=== PATIENT | male | born 1985 | race Hispanic/Latino ===

== ENCOUNTER 2023-01-15 16:46 | Inpatient (IN) | payer SELFPAY ==
[~2023-01-15] VITALS: Ht 170.2 cm; Wt 70.3 kg
[2023-01-15] MEDS ORDERED: ACETAMINOPHEN 325 MG TAB PO ONE (17:30)
[2023-01-15] MEDS ORDERED: SODIUM CHLORIDE 0.9% 1000ML 1,000 ML IV ONE ×2 (17:30→18:15)
[2023-01-15 17:35] LABS: BASOPHILS % 0.3 % (0.0-1.0); EOSINOPHILS # (AUTO) 0.1 (0.0-0.4); EOSINOPHILS % 0.5 % (0.0-6.0); HEMATOCRIT 44.6 % (38.2-49.6); HEMOGLOBIN 14.6 g/dL (14.0-18.0); LYMPHOCYTES # (AUTO) 0.6 (1.0-3.2); LYMPHOCYTES % 4.1 % (18.0-39.1); MEAN CORPUSCULAR HEMOGLOBIN 27.6 pg (28-32); MEAN CORPUSCULAR HGB CONC 32.7 g/dL (31-35); MEAN CORPUSCULAR VOLUME 84.3 fL (81-99); MONOCYTES # (AUTO) 0.6 (0.2-0.8); MONOCYTES % 3.9 % (4.4-11.3); NEUTROPHILS # (AUTO) 13.5 (2.1-6.9); NEUTROPHILS % 90.9 % (38.7-80.0); PLATELET COUNT 220 x10e3/uL (140-360); RED BLOOD COUNT 5.29 x10e6/uL (4.3-5.7); RED CELL DISTRIBUTION WIDTH 12.9 % (11.7-14.4)
[2023-01-15 17:45] LABS: INR 1.14; PROTHROMBIN TIME 15.1 seconds (11.9-14.5)
[2023-01-15 17:46] LABS: PARTIAL THROMBOPLASTIN TIME 37.4 seconds (23.8-35.5)
[2023-01-15 17:51] LABS: ALANINE AMINOTRANSFERASE 93 IU/L (0-55); ALBUMIN/GLOBULIN RATIO 0.8 (0.8-2.0); ALKALINE PHOSPHATASE 129 IU/L (40-150); ANION GAP 16.3 mmol/L (8-16); BLOOD UREA NITROGEN 12 mg/dL (7-26); BUN/CREATININE RATIO 16 (6-25); CALCIUM 9.6 mg/dL (8.4-10.2); CARBON DIOXIDE 26 mmol/L (22-29); CHLORIDE 100 mmol/L (98-107); CREATINE KINASE 65 IU/L (30-200); CREATININE, SERUM 0.76 mg/dL (0.72-1.25); POTASSIUM 3.3 mmol/L (3.5-5.1); SODIUM 139 mmol/L (136-145)
[2023-01-15 17:54] LABS: GLUCOSE 57 mg/dL (74-118)
[2023-01-15] MEDS ORDERED: Vancomycin IV 1 GM in SODIUM CHLORIDE 0.9% 250ML 250 ML IV STA (18:02)
[2023-01-15] MEDS ORDERED: CEFEPIME 2 GM in SODIUM CHLORIDE 0.9% 100 ML IV ONE (18:15)
[2023-01-15] MEDS ORDERED: DEXTROSE 50% SYRINGE 50 ML IV ONE (18:15)
[2023-01-15] MEDS ORDERED: ACETAMINOPHEN 325 MG TAB PO PRN (23:30)
[2023-01-16] VITALS (10 sets, daily range): BP systolic 95–187; BP diastolic 65–80
[2023-01-16] MEDS: KETOROLAC TROMETHAMINE 30 MG/ML VIAL IV PRN ×3 (00:03→17:17)
[2023-01-16] MEDS: GABAPENTIN 100 MG CAP PO SCH ×4 (00:04→20:55)
[2023-01-16] MEDS: SODIUM CHLORIDE 0.9% 1000ML 1,000 ML IV SCH ×4 (00:04→20:57)
[2023-01-16] MEDS: CELECOXIB 200 MG CAP PO SCH ×3 (00:04→17:17)
[2023-01-16] MEDS: PANTOPRAZOLE SOD 40 MG TABEC PO SCH ×2 (00:04→09:01)
[2023-01-16 02:32] LABS: AMPHETAMINES SCREEN,URINE POSITIVE (NEGATIVE); CLARITY,URINE SL CLOUDY (CLEAR); COLOR,URINE YELLOW (YELLOW); KETONES,URINE NEGATIVE (NEGATIVE); LEUKOCYTE ESTERASE ,URINE NEGATIVE (NEGATIVE); NITRITE,URINE NEGATIVE (NEGATIVE); PHENCYCLIDINE SCREEN,URINE NEGATIVE (NEGATIVE); PROTEIN,URINE DIPSTICK NEGATIVE (NEGATIVE)
[2023-01-16 02:33] LABS: BENZODIAZEPINES SCREEN,URINE NEGATIVE (NEGATIVE); URINE UROBILINOGEN 0.2 mg/dL (0.2 - 1)
[2023-01-16 03:22] LABS: BACTERIA,URINE RARE /HPF; EPITHELIAL CELLS,URINE RARE /LPF; MUCUS,URINE FEW (RARE); WBC,URINE (MAN) 0-5 /HPF (0-5)
[2023-01-16] MEDS: Vancomycin IV 1 GM in SODIUM CHLORIDE 0.9% 250ML 250 ML IV SCH ×2 (05:05→18:56)
[2023-01-16 06:37] LABS: BASOPHILS % 0.3 % (0.0-1.0); EOSINOPHILS # (AUTO) 0.2 (0.0-0.4); EOSINOPHILS % 1.5 % (0.0-6.0); HEMATOCRIT 36.1 % (38.2-49.6); LYMPHOCYTES # (AUTO) 0.9 (1.0-3.2); LYMPHOCYTES % 7.9 % (18.0-39.1); MEAN CORPUSCULAR HEMOGLOBIN 27.8 pg (28-32); MEAN CORPUSCULAR HGB CONC 33.2 g/dL (31-35); MEAN CORPUSCULAR VOLUME 83.6 fL (81-99); MONOCYTES # (AUTO) 0.9 (0.2-0.8); MONOCYTES % 7.9 % (4.4-11.3); NEUTROPHILS # (AUTO) 9.7 (2.1-6.9); NEUTROPHILS % 82.1 % (38.7-80.0); PLATELET COUNT 178 x10e3/uL (140-360); RED BLOOD COUNT 4.32 x10e6/uL (4.3-5.7); RED CELL DISTRIBUTION WIDTH 12.7 % (11.7-14.4)
[2023-01-16 07:03] LABS: ALBUMIN 2.7 g/dL (3.5-5.0); ALBUMIN/GLOBULIN RATIO 0.8 (0.8-2.0); ANION GAP 10.9 mmol/L (8-16); CALCIUM 8.2 mg/dL (8.4-10.2); CREATININE, SERUM 0.61 mg/dL (0.72-1.25); POTASSIUM 3.9 mmol/L (3.5-5.1)
[2023-01-16] MEDS: Morphine 2mg Syringe 2 MG/ML SYR IV PRN ×3 (14:14→23:34)
[2023-01-16] MEDS: ONDANSETRON HCL INJ 2MG/ML 2ML 2 MG/ML VIAL IV PRN ×2 (14:14→18:56)
[2023-01-17] VITALS (9 sets, daily range): BP systolic 101–126; BP diastolic 64–81
[2023-01-17] MEDS: SODIUM CHLORIDE 0.9% 1000ML 1,000 ML IV SCH ×3 (05:13→20:47)
[2023-01-17] MEDS: Vancomycin IV 1 GM in SODIUM CHLORIDE 0.9% 250ML 250 ML IV SCH ×2 (05:13→18:26)
[2023-01-17] MEDS: Morphine 2mg Syringe 2 MG/ML SYR IV PRN ×4 (05:14→20:48)
[2023-01-17] MEDS: CELECOXIB 200 MG CAP PO SCH ×2 (08:49→17:33)
[2023-01-17] MEDS: PANTOPRAZOLE SOD 40 MG TABEC PO SCH (08:49)
[2023-01-17] MEDS: GABAPENTIN 100 MG CAP PO SCH ×3 (08:49→20:47)
[2023-01-17] MEDS: KETOROLAC TROMETHAMINE 30 MG/ML VIAL IV PRN ×2 (08:50→17:36)
[2023-01-17] MEDS: BACITRACIN ZINC 15 GM OINT TOP SCH (10:19)
[2023-01-17] MEDS: ONDANSETRON HCL INJ 2MG/ML 2ML 2 MG/ML VIAL IV PRN ×2 (10:19→15:23)
[2023-01-18] VITALS (8 sets, daily range): BP systolic 99–128; BP diastolic 60–87
[2023-01-18] MEDS: Morphine 2mg Syringe 2 MG/ML SYR IV PRN ×4 (00:59→21:02)
[2023-01-18] MEDS: Vancomycin IV 1 GM in SODIUM CHLORIDE 0.9% 250ML 250 ML IV SCH ×2 (05:27→17:32)
[2023-01-18] MEDS: SODIUM CHLORIDE 0.9% 1000ML 1,000 ML IV SCH (05:27)
[2023-01-18 06:12] LABS: BASOPHILS # (AUTO) 0.1 (0.0-0.1); BASOPHILS % 0.7 % (0.0-1.0); EOSINOPHILS # (AUTO) 0.3 (0.0-0.4); EOSINOPHILS % 4.3 % (0.0-6.0); HEMATOCRIT 33.4 % (38.2-49.6); HEMOGLOBIN 10.8 g/dL (14.0-18.0); LYMPHOCYTES # (AUTO) 1.2 (1.0-3.2); LYMPHOCYTES % 17.1 % (18.0-39.1); MEAN CORPUSCULAR HEMOGLOBIN 27.4 pg (28-32); MEAN CORPUSCULAR HGB CONC 32.3 g/dL (31-35); MEAN CORPUSCULAR VOLUME 84.8 fL (81-99); MONOCYTES # (AUTO) 0.5 (0.2-0.8); MONOCYTES % 7.4 % (4.4-11.3); NEUTROPHILS # (AUTO) 4.9 (2.1-6.9); NEUTROPHILS % 70.4 % (38.7-80.0); PLATELET COUNT 206 x10e3/uL (140-360); RED BLOOD COUNT 3.94 x10e6/uL (4.3-5.7); RED CELL DISTRIBUTION WIDTH 12.7 % (11.7-14.4)
[2023-01-18 06:44] LABS: ANION GAP 10.4 mmol/L (8-16); CREATININE, SERUM 0.62 mg/dL (0.72-1.25); POTASSIUM 3.4 mmol/L (3.5-5.1)
[2023-01-18] MEDS ORDERED: POTASSIUM CHLORIDE 10MEQ EA PO ONE (08:45)
[2023-01-18] MEDS: PANTOPRAZOLE SOD 40 MG TABEC PO SCH (08:53)
[2023-01-18] MEDS: GABAPENTIN 100 MG CAP PO SCH ×3 (08:54→21:02)
[2023-01-18] MEDS: CELECOXIB 200 MG CAP PO SCH ×2 (08:56→17:31)
[2023-01-18] MEDS: KETOROLAC TROMETHAMINE 30 MG/ML VIAL IV PRN (12:21)
[2023-01-18] MEDS: CLINDAMYCIN HCL 150 MG CAP PO SCH ×2 (15:47→21:01)
[2023-01-18] MEDS: BACITRACIN ZINC 15 GM OINT TOP SCH (19:51)
== END 2023-01-18 23:56 | disposition left against medical advice (07) | DRG 603 ==
LOC: ER 18:03 → ERHOLD 21:23 → MED/SURG3 22:41
PROVIDERS: ADMIT Internal Medicine; ATTEND Internal Medicine
DX: L03.116 Cellulitis of left lower limb (principal); L03.115 Cellulitis of right lower limb; Z53.29 Procedure and treatment not carried out because of patient's decision for other reasons; F11.10 Opioid abuse, uncomplicated; R00.0 Tachycardia, unspecified; R21 Rash and other nonspecific skin eruption; Z20.822 Contact with and (suspected) exposure to COVID-19
CPT/HCPCS: 36415; 71045; 80048; 80053; 80202; 80307; 81001; 82550; 82553; 82948; 83605; 84484; 85025; 85610; 85730; 87040; 87071; 87186; 87205; 93005; 93306; 99252; 99284; J0692; J1885; J2270; J2405; J2543; J7030; J7050

== ENCOUNTER 2023-07-30 21:01 | Emergency (ER) | payer SELFPAY ==
[~2023-07-30] VITALS: Ht 177.8 cm; Wt 74.8 kg
[2023-07-30 22:02] VITALS: O2SAT 100
[2023-07-30] MEDS ORDERED: DOXYCYCLINE HY100 MG PO ×2 (22:19→22:27)
== END 2023-07-30 22:28 | disposition home or self-care (01) ==
LOC: EDBD 21:01 → ER 21:28
DX: L03.116 Cellulitis of left lower limb (principal); L03.115 Cellulitis of right lower limb; R60.9 Edema, unspecified; F11.10 Opioid abuse, uncomplicated
CPT/HCPCS: 99283